=== PATIENT | male | born 1980 | race Caucasian/White ===

== ENCOUNTER 2023-11-28 08:59 | Emergency (ER) | payer MEDICAID ==
[~2023-11-28] VITALS: Ht 160 cm; Wt 65.8 kg
[2023-11-28] MEDS ORDERED: KETOROLAC 30 MG/ML VIAL IM ONE (09:20)
[2023-11-28] MEDS ORDERED: DEXAMETHASONE 10 MG/ML VIAL IM ONE (09:20)
[2023-11-28 09:25] VITALS: BP 124/86; PULSE 114; RESP 20; TEMP 98.9; O2SAT 97
[2023-11-28 10:04] LABS: FLU A ANTIGEN negative (NEGATIVE); FLU B ANTIGEN negative (NEGATIVE)
[2023-11-28] MEDS ORDERED: IBUP-1842 PO (10:35)
[2023-11-28] MEDS ORDERED: ACET-2619 PO (10:35)
== END 2023-11-28 10:45 | disposition home or self-care (01) ==
LOC: MED 08:59
DX: J06.9 Acute upper respiratory infection, unspecified (principal); Z20.822 Contact with and (suspected) exposure to COVID-19; Z79.899 Other long term (current) drug therapy; Z79.1 Long term (current) use of non-steroidal anti-inflammatories (NSAID)
CPT/HCPCS: 87426; 87804; 96372; 99284; J1100; J1885